=== PATIENT | female | born 1955 | race Asian ===

== ENCOUNTER 2021-08-17 08:11 | Outpatient (CLI) | payer MEDICARE, OTHER ==
--- NOTE | 2021-08-18 09:27 | Mammography Report ---
BILATERAL DIGITAL SCREENING MAMMOGRAM 3D/2D: 08/17/2021 CLINICAL: Routine screening. No prior exams were available for comparison. The tissue of both breasts is heterogeneously dense. T his may lower the sensitivity of mammography. There is irregular equal density architectural distortion with an indistinct margin in the right [address] at 10 o'clock middle depth. No other significant masses, calcifications, or other findings are seen in either breast. IMPRESSION: INCOMPLETE: NEEDS ADDITIONAL IMAGING EVALUATION The irregular equal density architectural distortion in the right breast is indeterminate. Mediolate ral and spot compression views as well as additional views with possible ultrasound are recommended. This exam was interpreted at Station ID: [id number]. NOTE: For mammograms, a report in lay terms will be sent to the patient. Approximately 15% of breast malignancies will not be visualized mammographically. In the management of a palpable breast mass, a negative mammogram must not discourage biopsy of a clinically suspicious lesion. Electronically Signed By: Liam Rodriguez M.D. ddp/penrad:08/17/2021 09:45:56 ACR BI-RADS Category 0: Incomplete 3340F PARENCHYMAL PATTERN: (D) - The breast(s) demonstrate(s) heterogeneously dense fibroglandular parenchy ma. BI-RADS CATEGORY: (0) - 0 Mammo and US [id number] Immediate follow-up LATERALITY: (B)
== END 2021-08-17 08:12 | disposition home or self-care (01) ==
LOC: DI 08:11
DX: Z12.31 Encounter for screening mammogram for malignant neoplasm of breast (principal); R92.8 Other abnormal and inconclusive findings on diagnostic imaging of breast

== ENCOUNTER 2021-09-15 09:35 | Outpatient (CLI) | payer MEDICARE, OTHER ==
--- NOTE | 2021-09-18 10:26 | Mammography Report ---
UNILATERAL RIGHT DIGITAL DIAGNOSTIC MAMMOGRAM 3D/2D: 09/15/2021 CLINICAL: Patient returns today to evaluate a focal asymmetry in the right breast. Comparison is made to exams dated: 08/17/2021 mammogram - [facility], 03/09/2019 [facility] mogram, 02/24/2018 mammogram, and 03/22/2014 mammogram - [facility]. The tissue of right min[address] is heterogeneously dense. This may lower the sensitivity of mammography. There is irregular equal density architectural distortion with an indistinct margin in the right min[address] at 10 o'clock posterior depth. This is seen in additional views. This is more prominent compared to prior years. No other significant masses or calcifications are seen in the breast. IMPRESSION: INCOMPLETE: NEEDS ADDITIONAL IMAGING EVALUATION The irregular equal density architectural distortion in the right breast persists with additional vie ws but remains indeterminate. An ultrasound is recommended. This was performed immediately followin g this exam. This exam was interpreted at Station ID: [id number]. NOTE: For mammograms, a report in lay terms will be sent to the patient. Approximately 15% of breast malignancies will not be visualized mammographically. In the management of a palpable breast mass, a negative mammogram must not discourage biopsy of a clinically suspicious lesion. Electronically Signed By: Mallory spencer/:09/15/2021 11:03:22 ACR BI-RADS Category 0: Incomplete 3340F PARENCHYMAL PATTERN: (D) - The breast(s) demonstrate(s) heterogeneously dense fibroglandular parstaciy ma. BI-RADS CATEGORY: (0) - 0 Ultrasound [id number] Immediate follow-up LATERALITY: (B)
--- NOTE | 2021-09-18 10:26 | Ultrasound Report ---
LIMITED ULTRASOUND OF RIGHT BREAST: 09/15/2021 CLINICAL: Patient returns today to evaluate an architectural distortion in the right breast. Comparison is made to exams dated: 09/15/2021 mammogram, 08/17/2021 mammogram - [facility], 03/09/2019 mammogram, 02/24/2018 mammogram, and 03/22/2014 mammogram - [facility]. Real-time ultrasound of the right breast 9-11 o'clock region was performed. Diane scale images of the real-time examination were reviewed. In the area of mammographic abnormality, there is a surgical scar, and patient reports history of a b enign lumpectomy. Ultrasound shows a benign irregular post-surgical scar in the right breast at 10 o' clock middle depth. This irregular post-surgical scar displays no posterior acoustic shadowing or en hancement. This abnormality is not significantly changed compared to multiple prior mammograms, and correlates with most recent mammography findings. Color flow imaging demonstrates that there is no v ascularity or suspicious features present. IMPRESSION: BENIGN There is no sonographic evidence of malignancy. The irregular post-surgical scar in the right breast is benign. Return to annual mammogram screening schedule is recommended. Findings and recommendations were conveyed to the patient at time of exam. This exam was interpreted at Station ID: [id number]. Electronically Signed By: Mallory spencer/:09/15/2021 11:38:13 Ultrasound BI-RADS: 2 Benign BI-RADS CATEGORY: (2) - 2 Mammogram [id number] return to screening LATERALITY: (B)
== END 2021-09-15 09:36 | disposition home or self-care (01) ==
LOC: DI 09:35
PROVIDERS: ATTEND Family Medicine
DX: R92.8 Other abnormal and inconclusive findings on diagnostic imaging of breast (principal)

== ENCOUNTER 2022-03-23 12:08 | Outpatient (CLI) | payer MEDICARE, OTHER ==
--- NOTE | 2022-03-23 14:00 | DEXA Report ---
PROCEDURE: Dexa Spine and/or Hip INDICATIONS: BONE DISORDER TECHNIQUE: Dual energy x-ray absorptiometry (DXA) was performed on a [facility]. Regions measur ed are the AP Spine, femoral neck, and if needed forearm. COMPARISON: None. FINDINGS: Lumbar Spine: Bone Mineral Density 1.206 g/cm/cm,T score 0.2 Left Hip: Bone Mineral Density 1.010 g/cm/cm,T score 0.0. Left Femoral Neck: Bone Mineral Density 0.880 g/cm/cm, T score -1.1. (T score greater or equal to -1.0: NORMAL) (T score from -1.1 to -2.4: OSTEOPENIA) (T score less than or equal to -2.5 to: OSTEOPOROSIS) Impression: Osteopenia Patients with diagnosis of osteoporosis or osteopenia should have regular bone mineral density assess ment. For those eligible for Medicare, routine testing is allowed once every 2 years. Testing frequ ency can be increased for patients who have rapidly progressing disease or for those who are receivin g medical therapy to restore bone mass. Reviewed by: Itz Watt MD on 03/23/2022 1:59 PM PDT Approved by: Itz Watt MD on 03/23/2022 1:59 PM PDT Station ID: [id number]
== END 2022-03-23 12:09 | disposition home or self-care (01) ==
LOC: DI 12:08
PROVIDERS: ATTEND Family Medicine
DX: M85.88 Other specified disorders of bone density and structure, other site (principal)

== ENCOUNTER 2024-02-12 16:24 | Outpatient (CLI) | payer MEDICARE, OTHER ==
--- NOTE | 2024-02-12 19:29 | MRI Report ---
PROCEDURE: Lumbar Spine WO INDICATIONS: LOW BACK PAIN TECHNIQUE: Noncontrast sagittal T1 spin echo and T2 fast echo, sagittal STIR, axial T1 and T2 fast spin echo thr ough the lumbar spine. In cases with scoliosis, additional coronal T2 fast spin echo may be performe d. COMPARISON: None. FINDINGS: Image quality: Diagnostic, with note made of motion artifact. Alignment and Curvature: There is mild grade 1 anterolisthesis seen at the L4-L5 level. No associate d pars defects are seen. Bone Marrow: Marrow is of normal overall signal. No acute vertebral body compression fractures. Spinal Cord: Conus medullaris terminates at the L1-L2 level. Visualized cord demonstrates normal si gnal and size. Paraspinous Soft Tissues: No paravertebral masses. T12-L1: Normal in appearance. L1-L2: Normal in appearance. L2-L3: The disc height is well-preserved. There is loss of disc signal seen. Mild to moderate disc bulge is seen. Mild to moderate facet hypertrophy can be seen. There is moderate right-sided and mil d left-sided neuroforaminal narrowing. Mild central canal narrowing is seen. Mild loss of disc he ight and disc signal are seen. L3-L4: Mild to moderate loss of disc height and disc signal can be seen. Moderate disc bulge is see n at this level, which is eccentric to the left. Mild facet hypertrophy is seen. Moderate bilateral neuroforaminal narrowing can be seen, left worse than right. Moderate central canal narrowing is se en. L4-L5: Mild loss of disc height and disc signal are seen. Moderate disc bulge is seen at this leve l. A superimposed central disc protrusion is seen. At least moderate facet hypertrophy is seen. Ass ociated hypertrophy of the ligamentum flavum can be seen. There is moderate left-sided and moderate t o severe right-sided neuroforaminal narrowing. There is a degree of compression seen upon the exiting right L4 nerve root. Moderate to severe central canal narrowing is seen, as on series 5 image 31. L5-S1: The disc height is well-preserved. There is loss of disc signal seen. Mild disc bulge is se en. There is moderate to prominent right-sided and moderate left-sided facet hypertrophy. There is at least moderate right-sided and moderate left-sided neuroforaminal narrowing. Mild central canal belen rowing is seen. IMPRESSION: Multiple levels of lower lumbar spine degenerative change can be seen, which are overall most promine nt at the L4-L5 level. Reviewed by: Troy Coelho MD on 02/12/2024 6:28 PM SONYA Approved by: Troy Coelho MD on 02/12/2024 6:28 PM SONYA Station ID: [id number]
== END 2024-02-12 16:25 | disposition home or self-care (01) ==
LOC: DI 16:24
PROVIDERS: ATTEND Student in an Organized Health Care Education/Training Program
DX: M51.36 Other intervertebral disc degeneration, lumbar region (principal); M48.061 Spinal stenosis, lumbar region without neurogenic claudication; M47.816 Spondylosis without myelopathy or radiculopathy, lumbar region; M51.37 Other intervertebral disc degeneration, lumbosacral region; M48.07 Spinal stenosis, lumbosacral region; M47.817 Spondylosis without myelopathy or radiculopathy, lumbosacral region

== ENCOUNTER 2024-03-05 08:32 | Outpatient (CLI) | payer MEDICARE, OTHER ==
--- NOTE | 2024-03-05 10:58 | Ultrasound Report ---
LIMITED ULTRASOUND OF RIGHT BREAST: 03/05/2024 CLINICAL: Patient returns today to evaluate an architectural distortion in the right breast. Comparison is made to exams dated: 03/05/2024 mammogram - [facility], 02/20/2024 mamm ogram - [facility], 09/15/2021 ultrasound, 09/15/2021 mammogram, 08/17/2021 mammogram - [facility], and 03/09/2019 mammogram - [facility]. Real-time ultrasound of the right breast 7-10 o'clock region was performed. Diane scale images of the real-time examination were reviewed. No significant abnormalities were seen sonographically in the right breast. IMPRESSION: BENIGN There is no sonographic evidence of malignancy. There is no abnormality seen in the right breast to correspond with the mammography finding. Patient had a biopsy in 1996 at location of scar marker on mammogram. The mammographic findings likely represent postprocedural changes, retrospective seen dating to 2019 as well. Return to annual mammogram screening schedule is recommended. This exam was interpreted at Station ID: [id number]. Electronically Signed By: Brandon Wood M.D. lc/:03/05/2024 09:30:06 Ultrasound BI-RADS: 2 Benign BI-RADS CATEGORY: (2) - 2 Mammogram [id number] return to screening LATERALITY: (B)
--- NOTE | 2024-03-05 10:58 | Mammography Report ---
UNILATERAL RIGHT DIGITAL DIAGNOSTIC MAMMOGRAM 3D/2D WITH SPOT COMPRESSION: 03/05/2024 CLINICAL: Patient returns today to evaluate an architectural distortion in the right breast. Comparison is made to exams dated: 02/20/2024 mammogram - [facility], 09/15/2021 mammogram, 08/17/2021 mammo gram - [facility], 03/09/2019 mammogram, and 02/24/2018 mammogram - [facility]. The right breast is heterogeneously dense, which may obscure small masses (category c / 51-75% glandu lar tissue). There is possible architectural distortion in the right breast at 9 o'clock posterior depth. There i s a post-surgical scar associated with the architectural distortion. No other significant masses or calcifications are seen in the breast. IMPRESSION: INCOMPLETE: NEEDS ADDITIONAL IMAGING EVALUATION The possible architectural distortion in the right breast is indeterminate. An ultrasound is recomme nded. Based on the Tyrer Cuzick model (a risk assessment model) the patient's lifetime risk is 17.1% and he r 10 year risk is 9.7%. According to the ACR, ACS, and NCCN guidelines, an annual breast MRI exam shay ng with mammogram is recommended if the patient's lifetime risk is 20% or greater. This exam was interpreted at Station ID: [id number]. NOTE: For mammograms, a report in lay terms will be sent to the patient. Approximately 15% of breast malignancies will not be visualized mammographically. In the management of a palpable breast mass, a negative mammogram must not discourage biopsy of a clinically suspicious lesion. Electronically Signed By: Brandon Wood M.D. lc/:03/05/2024 09:28:47 ACR BI-RADS Category 0: Incomplete 3340F PARENCHYMAL PATTERN: (D) - The breast(s) demonstrate(s) heterogeneously dense fibroglandular parenchy ma. BI-RADS CATEGORY: (0) - 0 Ultrasound [id number] Immediate follow-up LATERALITY: (B)
== END 2024-03-05 08:33 | disposition home or self-care (01) ==
LOC: DI 08:32
PROVIDERS: ATTEND Nurse Practitioner Family
DX: R92.8 Other abnormal and inconclusive findings on diagnostic imaging of breast (principal); R92.331 Mammographic heterogeneous density, right breast

== ENCOUNTER 2024-07-23 05:55 | Day surgery (SDC) | payer MEDICARE, OTHER ==
[2024-07-23] MEDS ORDERED: PHENYLEPHRINE 2.5% OPHTH 2 ML DROPS ONE (06:09)
[2024-07-23] MEDS ORDERED: CYCLOPENTOLATE 1% OPHTH DROPS 2 ML ONE (06:09)
[2024-07-23] MEDS ORDERED: KETOROLAC TROMETHAMINE 0.5% OPHTH DROPS 5 ML ONE (06:09)
[2024-07-23] MEDS ORDERED: PROPARACAINE 0.5% OPHTH DROPS 15 ML ONE (06:09)
[2024-07-23] MEDS: CYCLOPENTOLATE 1% OPHTH DROPS 2 ML LEFTEYE ONE (06:30)
[2024-07-23] MEDS: PROPARACAINE 0.5% OPHTH DROPS 15 ML LEFTEYE ONE ×2 (06:30→07:38)
[2024-07-23] MEDS: KETOROLAC TROMETHAMINE 0.5% OPHTH DROPS 5 ML LEFTEYE ONE (06:30)
[2024-07-23] MEDS: PHENYLEPHRINE 2.5% OPHTH 2 ML DROPS LEFTEYE ONE (06:30)
[2024-07-23 06:41] VITALS: O2SAT 97
[2024-07-23] MEDS: LACTATED RINGERS 1,000 ML IV ONE ×2 (06:44→07:53)
[2024-07-23] MEDS ORDERED: TRIAMCIN/MOXIFLOX OPHTHALMIC 0.6 ML VIAL IO ONE (06:48)
[2024-07-23] MEDS ORDERED: EPINEPHrine 1 MG/ML AMP ONE (06:48)
[2024-07-23] MEDS ORDERED: ACETYLCHOLINE 20 MG/2 ML KIT IO ONE (06:49)
[2024-07-23] MEDS ORDERED: BSS/LIDOCAINE/EPINEPHRINE 1 ML VIAL ONE (06:49)
[2024-07-23] MEDS ORDERED: TIMOLOL 0.5% OPHTH DROPS ONE (06:49)
[2024-07-23] MEDS ORDERED: BRIMONIDINE 0.2% OPHTH DROPS 5 ML ONE (06:49)
[2024-07-23] MEDS ORDERED: MIDAZOLAM 2 MG/2 ML VIAL ONE (07:31)
[2024-07-23] MEDS: BRIMONIDINE 0.2% OPHTH DROPS 5 ML OPTH ONE (07:37)
[2024-07-23] MEDS: EPINEPHrine 1 MG/ML AMP IR ONE (07:37)
[2024-07-23] MEDS: VANCOMYCIN OPHTH (TOPICAL) 10 MG/ML SYRINGE TOP ONE (07:38)
[2024-07-23] MEDS: BSS/LIDOCAINE/EPINEPHRINE 1 ML SYRINGE IO ONE (07:38)
[2024-07-23] MEDS: TIMOLOL 0.5% OPHTH DROPS OPTH ONE (07:38)
[2024-07-23] MEDS: TRIAMCIN/MOXIFLOX OPHTHALMIC 0.6 ML VIAL IO ONE (07:38)
--- NOTE | 2024-07-23 08:00 | OPERATIVE REPORT ---
Operative Report - Other Other Information/Narrative: Date of Surgery: 07/23/24 Preop Dx: Visually significant cataract left eye. This was the first cataract surgery. Postop Dx: Same Procedure: Phacoemulsification with posterior chamber intraocular lens implant left eye Surgeon: Dr. Wicho Doss Anesthesia: Monitored anesthesia care Complications: None Operative Indications: This is a 69-year-old F with progressive vision loss in the left eye due to 2+ nuclear sclerotic and 3+ cortical cataract with central irregularities. Best corrected visual acuity was 20/40 with glare to 20/250 vision in the left eye. Indications for surgery were: - Overall decrease in vision - Difficulty seeing words on a computer screen - Difficulty reading - Difficulty seeing words, closed captions, or game scores on TV - Difficulty driving in low light or at night - Difficulty driving at night because of headlights from other vehicles - Difficulty with glare or bright lights in any situation The patient was consented at length concerning the risks and benefits of cataract surgery after which the patient expressed a desire to proceed with surgery. Operative Procedure: The patient was taken into OR#3 and placed under monitored anesthesia care. A surgical time-out was conducted confirming correct patient, correct procedure, and correct surgical site. The patient was given topical anesthesia and then prepped and draped in the usual sterile fashion. The eye was entered at the 6 and 3 oclock positions. Intracameral Shugarcaine was injected into the anterior chamber followed by a dispersive viscoelastic. A continuous-tear curvilinear capsulorhexis was performed. The nucleus was hydrodissected and phacoemulsified. The cortex was evacuated using automated infusion and aspiration. A cohesive viscoelastic was injected into the capsular bag and a 22.5 diopter intraocular lens was inserted into the bag. Infusion and aspiration were used to evacuate the viscoelastic materials from the eye. The wounds were hydrated and the eye inflated to physiologic pressure using balanced salt solution. Approximately 0.25ml of a mixture of triamcinolone and moxifloxacin was injected trans-sclerally into the vitreous in the inferotemporal quadrant using a 30 gauge cannula. An additional 0.25ml of a mixture of triamcinolone and moxifloxacin was injected subconjunctivally in the superior quadrant for infection and inflammation prophylaxis. Wound integrity was checked with Weck-Dipti sponges. The patient was taken from the operating room in good condition and given post-op instructions.
--- NOTE | 2024-07-23 08:03 | ANESTHESIA ---
Pre-Anesthesia VS, & Labs - Diagnosis L cataract - Procedure L PhacoIOL Vital Signs: Temp Pulse Resp BP Pulse Ox O2 Flow Rate 36.0 C L 63 12 104/63 97 07/23/24 07:54 07/23/24 07:54 07/23/24 07:54 07/23/24 07:54 07/23/24 07:54 Height: 5 ft Weight (kg): 61.2 kg Body Mass Index: 26.3 BMI Classification: Overweight - NPO >8 hours - Is Patient ?: No - Lab Results Current Lab Results: Laboratory Tests 07/23/24 06:41: POC Whole Bld Glucose 124 H Home Medications and Allergies Home Medications: Ambulatory Orders Aspirin [Vazalore] 81 mg PO DAILY 07/22/24 Calcium Carbonate/Vitamin D3 [Calcium 600-Vit D3 200 Tablet] 1 tab PO DAILY 07/22/24 Cholecalciferol (Vitamin D3) [Vitamin D3] 1,250 mcg PO DAILY 07/22/24 Metformin HCl [Metformin ER Osmotic] 750 mg PO DAILY 07/22/24 Rosuvastatin Calcium 5 mg PO DAILY 07/22/24 Aspirin [Vazalore] 81 mg PO DAILY 07/22/24 Calcium Carbonate/Vitamin D3 [Calcium 600-Vit D3 200 Tablet] 1 tab PO DAILY 07/22/24 Cholecalciferol (Vitamin D3) [Vitamin D3] 1,250 mcg PO DAILY 07/22/24 Metformin HCl [Metformin ER Osmotic] 750 mg PO DAILY 07/22/24 Rosuvastatin Calcium 5 mg PO DAILY 07/22/24 Allergies/Adverse Reactions: Allergies Allergy/AdvReac Type Severity Reaction Status Date / Time meloxicam [From ic] Allergy Rash Verified 07/22/24 12:50 Penicillins Allergy Rash Verified 07/22/24 12:50 sulfamethoxazole Allergy Rash Verified 07/22/24 12:50 [From Julra] trimethoprim [From ] Allergy Rash Verified 07/22/24 12:50 Anes History & Medical History - Anesthetic History Anesthesia Complications: reports: No previous complications Family history of Anesthesia Complications: Denies Family history of Malignant Hyperthermia: Denies - Medical History Cardiovascular: reports: High cholesterol Gastrointestinal: reports: None Urinary: reports: None Musculoskeletal: reports: Osteoarthritis Endocrine/Autoimmune: reports: Other Skin: reports: None Psychosocial: reports: No issues indicated - Surgical History Gynecologic: reports: section, Hysterectomy, Other Orthopedic: reports: Arthroscopic surgery Exam General: Alert, Oriented x3, Cooperative Dental: WNL Mouth Openin Fingerbreadth Neck Mobility: Normal Mallampati classification: I Thyromental Distance: 4-6 cm Respiratory: Lungs clear Cardiovascular: Regular rate Plan Anesthesia Type: MAC Consent for Procedure(s) Verified and Reviewed: Yes Code Status: Attempt Resuscitation ASA classification: 2-Mild systemic disease Is this case an emergency?: No
[2024-07-23 08:18] VITALS: BP 112/63
--- NOTE | 2024-07-23 11:07 | ANESTHESIA POST OP EVALUATION ---
Anesthesia Post Eval - Post Anesthesia Eval Vitals: Last Vital Signs Temp 36.0 C L 07/23/24 08:14 Pulse 58 L 07/23/24 08:14 Resp 14 07/23/24 08:14 BP 112/63 07/23/24 08:14 Pulse Ox 97 07/23/24 08:14 O2 Flow Rate CV Function Including HR & BP: Stable Pain Control: Satisfactory Nausea & Vomiting: Negative Mental Status: Baseline Respiratory Status: Airway Patent Hydration Status: Satisfactory Anesthesia Complications: None
== END 2024-07-23 05:56 | disposition home or self-care (01) ==
LOC: SDS 05:55
PROVIDERS: ATTEND Ophthalmology
DX: E11.36 Type 2 diabetes mellitus with diabetic cataract (principal); H25.812 Combined forms of age-related cataract, left eye; Z79.84 Long term (current) use of oral hypoglycemic drugs
CPT/HCPCS: 66984; A9270; J3490; J7120